=== PATIENT | male | born 1950 | race Caucasian/White ===

== ENCOUNTER 2018-05-02 08:33 | Outpatient (CLI) | payer MEDICARE | END 2018-05-02 23:59 | disposition home or self-care (01) | LOC: RAD 08:33 | PROVIDERS: ATTEND Urology | DX: N43.3 Hydrocele, unspecified (principal); R10.84 Generalized abdominal pain; R93.5 Abnormal findings on diagnostic imaging of other abdominal regions, including retroperitoneum; R09.89 Other specified symptoms and signs involving the circulatory and respiratory systems | CPT/HCPCS: 93978 ==

== ENCOUNTER 2019-03-25 15:11 | Outpatient (CLI) | payer MEDICARE | END 2019-03-25 23:59 | disposition home or self-care (01) | LOC: CARD 15:11 | PROVIDERS: ATTEND Internal Medicine Cardiovascular Disease | DX: R06.02 Shortness of breath (principal) | CPT/HCPCS: 94060; 94726; 94729 ==